=== PATIENT | male | born 1990 | race Hispanic/Latino ===

== ENCOUNTER 2022-04-17 16:45 | Emergency (ER) | payer OTHER, SELFPAY ==
[2022-04-17 16:59] VITALS: BP 134/83; PULSE 86; RESP 19; TEMP 36.7; O2SAT 98; BMI 26.4
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
[2022-04-17 19:25] VITALS: BP 130/80; PULSE 85; RESP 19; O2SAT 99
== END 2022-04-17 19:27 | disposition home or self-care (01) ==
PROVIDERS: Emergency Provider Emergency Medicine
DX: S00.01XA Abrasion of scalp, initial encounter (principal); S39.012A Strain of muscle, fascia and tendon of lower back, initial encounter; M25.571 Pain in right ankle and joints of right foot; V89.2XXA Person injured in unspecified motor-vehicle accident, traffic, initial encounter
CPT/HCPCS: 99282; 99283